=== PATIENT | female | born 1950 | race Caucasian/White ===

== ENCOUNTER 2021-08-08 08:30 | Outpatient (RCR) | payer MEDICARE, OTHER, SELFPAY ==
--- NOTE | 2021-07-26 07:31 | HP.OTEVAL ---
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 Date of Evaluation: 07/25/21 Occupational Therapist: Vannessa Monk, KYLIE/Magdalena, CHT - Subjective Pt. is a 71 y/o female who has gotten her cast off today (07-25-21). She has osteoarthritis and her thumb has been bothering her for over a year. She trialed 1 or 2 cortisone shots prior to sx. procedure (Left 1st CMC interposition arthroplasty, transfer of flexor carpi radialis tendon to CMC area) which was on the June 28, 2021 (4 weeks on Thursday). She is currently having mild difficulty with ADL's and participating in hobbies (bicycling). 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 - ADLs Comments: min difficulty Comments: min difficulty Comments: no difficulty Comments: compensates and uses R hand Comments: Pt. lives with and he is able to assist. R handed. Pt. has mild difficulty with ADL tasks, pt. stating she has been compensating with using her R hand with most tasks. - Pain Hand 0 Pain Intensity Range: 1 - Objective Pt. has joint deformities in B hands related to osteoarthritis. - ROM Shoulder: B shoulders ~ 130* Elbow: B WFL Wrist: R 35/80 L 30/65 CMC: R 30/10 L 5/ 12 MP: R 0/35 L 0/10 IP: R +5/60 L 0/65 ROM Comments: Pt. can make a composite fist with B hands and complete thumb to finger tip opposition to each digit on B hands. - Strength Resource Recovery Engineer: R 35# L NT Lateral Pinch: R 12# L NT Tripod Pinch: R 10# L NT Tip-to-Tip Pinch: R 8# L NT Strength Comments: will test L side at a later date - Sensation Sensation Comments: pt. declined any deficits with sensation - DASH-Disabilities of Arm, Shoulder& Hand DASH Sum: 4 - Quick DASH-Disab of Arm,Shoulder& Hand Quick DASH Score: 35.0000 - Goals Goal:100% adherence to protocol: Yes Comment: CMC arthroplasty guideline protocol Goal:Daily scar massage when approriate: Yes Goal:ROM equal to unaffected hand: Yes Goal:Resource Recovery Engineer/Pinch strength at least 75% of unaffected hand: Yes Goal:No pain with affected hand use: Yes Goal:Full use of affected hand in daily activities including: Yes - Rehabilitation General Assessment: Pt. had unilateral primary osteoarthritis of 1st CMC joint on her left hand by Dr. Rutherford on 06-28-21 (4 weeks ago). Educated pt. on what to expect with recovery, HEP, scar massage, and orthotic wearing schedule. Because of deficits has decreased indep with. Benefit from skilled OT services 1x a week for 6 weeks to improve strengthening of L thumb and prevent deformity. Pt. demo'd understanding & agreeable to POC. This session was directly supervised and doc. was reviewed and approved by Vannessa Monk OTR/Magdalena,CHT. Rehabilitation Potential: Excellent - Anticipated Interventions Early Active Motion, A/AAROM/PROM, Strengthening, Scar Care, Modalities, Orthoses, Joint Protection/Energy Conservation, Ergonomic Education, Fine Motor Coord/Willis, Education re Diagnosis, Education re Skin Care and Precautions, Home Program Other Interventions: Using Lyndsay hand and shoulder guidelines p. 36 - Visit Plan Frequency: 1-2x /Week Duration: 4-6 Weeks General Plan: wear custom orthosis for 2 weeks daily,. ed.pt on MP hyperextension. then move to comfort cool at week 6, light strengthening at week 6. wear custom orthotic at night for 8 weeks. thumb stabilization ex at week 6 TEXT: Thank you for the opportunity to evaluate your patient. For Medicare and Medicare HMO plans, please review the plan of care and approve it. It will need to be FAXED BACK to us at [phone] for Medicare purposes. Please let me know if there are questions or concerns regarding this plan of care. Physician Signature: Date:
== END 2021-08-08 19:00 | disposition home or self-care (01) ==
LOC: OT 08:30
PROVIDERS: Referring Provider Physician Assistant Surgical; Visit Provider Physician Assistant Surgical
DX: M18.12 Unilateral primary osteoarthritis of first carpometacarpal joint, left hand (principal)
CPT/HCPCS: 97110; 97166; 97760